=== PATIENT | male | born 1980 | race Caucasian/White ===

== ENCOUNTER 2019-06-26 12:16 | Emergency (ER) | payer OTHER ==
[~2019-06-26] VITALS: Ht 177.8 cm; Wt 85.8 kg
[~2019-06-26 12:16] MED LIST: CLIN300C10 PO; HYDR-4011 PO; IBUP-1542 PO
[2019-06-26 12:39] VITALS: Ht 177.8 cm; Wt 85.8 kg
[2019-06-26 14:55] VITALS: BP 137/72; PULSE 74; RESP 16
[2019-06-26] MEDS ORDERED: HYDROCODONE/APAP (5/325) TAB PO ONE (15:00)
== END 2019-06-26 14:55 | disposition home or self-care (01) ==
LOC: FTE 12:16
DX: L05.01 Pilonidal cyst with abscess (principal); F17.210 Nicotine dependence, cigarettes, uncomplicated
CPT/HCPCS: 10080; Z7502; Z7610